=== PATIENT | male | born 1975 | race Caucasian/White ===

== ENCOUNTER 2018-04-11 09:50 | Emergency (ER) | payer BC ==
[2018-04-11 10:01] VITALS: BP 127/85
--- NOTE | 2018-04-11 10:03 | UC ---
Skin Complaint HPI - HPI Summary HPI Summary: 42 yo male presents with tick bite to left upper back. He first noticed this last night and was able to remove the tick - says it was fairly big tick but did not look engorged. Said that [place] yesterday and thinks thats when he got it. Denies fever/chills - History of Current Complaint Chief Complaint: UCSkin Time Seen by Provider: 04/11/18 09:55 Stated Complaint: TICK BITE Hx Obtained From: Patient Current Severity: None Pain Intensity: 0 - Allergy/Home Medications Allergies/Adverse Reactions: Allergies Allergy/AdvReac Type Severity Reaction Status Date / Time Hayfever Allergy Congestion Uncoded 04/11/18 10:01 Review of Systems Constitutional: Negative Skin: Other - Tick bite left upper back Respiratory: Negative Cardiovascular: Negative Neurovascular: Negative Neurological: Negative Psychological: Negative All Other Systems Reviewed And Are Negative: Yes PMH/Surg Hx/FS Hx/Imm Hx - Additional Past Medical History Additional PMH: None Previously Healthy: Yes - Surgical History Surgical History: Yes Surgery Procedure, Year, and Place: VASECTOMY - Family History Known Family History: Positive: Hypertension - Social History Alcohol Use: Occasionally Substance Use Type: None Smoking Status (MU): Never Smoked Tobacco Have You Smoked in the Last Year: No - Immunization History Most Recent Tetanus Shot: not sure Physical Exam - Summary Physical Exam Summary: GENERAL: NAD. WDWN. No pain distress. SKIN: Left upper back: 3mm area of mild erythema with 1mm of central skin loss. No remaining tick pieces appreciated. No streaking, bleeding, or drainage. NECK: Supple. Nontender. No lymphadenopathy. CHEST: No accessory muscle use. Breathing comfortably and in no distress. CV: RRR. Without m/r/g. NEURO: Alert. CN II-XII grossly intact. PSYCH: Age appropriate behavior. Triage Information Reviewed: Yes Vital Signs: Initial Vital Signs Temp 98 F 04/11/18 09:58 Pulse 83 04/11/18 09:58 Resp 15 04/11/18 09:58 BP 127/85 04/11/18 09:58 Pulse Ox 98 04/11/18 09:58 Course/Dx - Course Course Of Treatment: Tick bite left upper back. Less than 24 hours attached. No treatment needed. - Diagnoses Provider Diagnoses: Tick bite Discharge - Sign-Out/Discharge Documenting (check all that apply): Discharge/Admit/Transfer - Discharge Plan Condition: Stable Disposition: HOME Patient Education Materials: Lyme Disease (ED), Tick Bite (ED) Referrals: Ton VILLAR,Francisco Somers [Primary Care Provider] - Additional Instructions: TICK BITE: You have been bitten by a tick. Once the tick is removed, these "bites" usually cause no problems. Tick fever, tick paralysis, Grayridge Spotted fever, and Lyme disease are uncommon -- but you should mention this tick bite to your doctor if you develop unusual symptoms in the next several weeks. If you develop any of the following, please see your physician promptly: (1) Fever, chills, or generalized malaise associated with a headache. (2) A red round area at the site of the bite (or elsewhere) (3) Joint pain, joint swelling or generalized weakness. (4) Redness, swelling, or drainage at the site of the bite. - Billing Disposition and Condition Condition: STABLE Disposition: HOME
== END 2018-04-11 10:18 | disposition home or self-care (01) ==
LOC: UCEAST 09:50
DX: S20.462A Insect bite (nonvenomous) of left back wall of thorax, initial encounter (principal); W57.XXXA Bitten or stung by nonvenomous insect and other nonvenomous arthropods, initial encounter; Y93.01 Activity, walking, marching and hiking; Y92.821 Forest as the place of occurrence of the external cause
CPT/HCPCS: 99211; G0463

== ENCOUNTER 2018-06-13 05:13 | Emergency (ER) | payer BC ==
[2018-06-13] MEDS ORDERED: Nitroglycerin TAB 0.4 MG* 0.4 MG TAB SL PRN (05:40)
[2018-06-13] MEDS ORDERED: Morphine VIAL* 4 MG/ML VIAL (1 ml vial) IV PRN (05:40)
--- NOTE | 2018-06-13 05:42 | ED ---
HPI Chest Pain - HPI Summary HPI Summary: Pt is a 42 y/o M c/o intermittent CP located in the mid sternum radiating to the L-side, L-shoulder and L-back. CP is described as dull and tight. Shoulder pain is described as, "stabbing in shoulder". Onset ~0330 waking him from deep sleep. Assoc. Sx: . Denies: SOB, dizziness, ADAMS, vision changes, N/V, diarrhea. Alleviating factors: deep breaths. Pt notes that he lifted a heavy anvil at work 1 week ago and started having CP the day after. PMHx: sleep apnea. FHx: A- fib. - History of Current Complaint Chief Complaint: EDChestPainROMI Hx Obtained From: Patient Onset/Duration: Started Weeks Ago, Resolved Timing: Intermittent, Lasting Minutes Current Severity: Mild Pain Intensity: 3 Pain Scale Used: 0-10 Numeric Chest Pain Location: Mid Sternal Chest Pain Radiates: Yes Chest Pain Radiates To:: Back - L-side, Flank - L-side, Shoulder - L-side Character: Dull/Aching, Sharp/Stabbing, Tightness Aggravating Factor(s): Nothing Alleviating Factor(s): Other: - deep breaths Associated Signs and Symptoms: Positive: Chest Pain, Back Pain. Negative: Headaches, Dizziness, Shortness of Breath, Lightheadedness, Nausea, Vomiting - Allergy/Home Medications Allergies/Adverse Reactions: Allergies Allergy/AdvReac Type Severity Reaction Status Date / Time Hayfever Allergy Congestion Uncoded 06/13/18 05:26 Home Medications: Home Medications Naproxen [Naproxen 500 mg tab] 500 mg PO BID 06/13/18 [History Confirmed ] PMH/Surg Hx/FS Hx/Imm Hx Endocrine/Hematology History: Denies: Hx Diabetes, Hx Thyroid Disease Cardiovascular History: Denies: Hx Hypertension Respiratory History: Denies: Hx Asthma, Hx Chronic Obstructive Pulmonary Disease (COPD) GI History: Denies: Hx Ulcer - Surgical History Surgery Procedure, Year, and Place: VASECTOMY Infectious Disease History: No Infectious Disease History: Denies: Hx Clostridium Difficile, Hx Hepatitis, Hx Human Immunodeficiency Virus (HIV), Hx of Known/Suspected MRSA, Hx Shingles, Hx Tuberculosis, Hx Known/ Suspected VRE, Hx Known/Suspected VRSA, History Other Infectious Disease, Traveled Outside the [place] in Last 30 Days - Family History Known Family History: Positive: Cardiac Disease - A-fib, Hypertension - Social History Occupation: Employed Full-time Lives: With Family Alcohol Use: Rare Substance Use Type: Reports: None Smoking Status (MU): Never Smoked Tobacco Have You Smoked in the Last Year: No Review of Systems Positive: Chest Pain - central Negative: Shortness Of Breath Negative: Vomiting, Diarrhea, Nausea Positive: flank pain - L-sided Positive: Other - L-sided shoulder pain, back pain Negative: Headache All Other Systems Reviewed And Are Negative: Yes Physical Exam - Summary Physical Exam Summary: Appearance: Well-appearing, Well-nourished, lying in bed comfortably Skin: Warm, dry, no obvious rash Eyes: sclera anicteric, no conjunctival pallor ENT: mucous membranes moist, pharynx appears normal Neck: Supple, nontender Respiratory: Clear to auscultation, no signs of respiratory distress Cardiovascular: Normal S1, S2. No murmurs. Normal distal pulses in tibial and radial bilaterally. Abdomen: Soft, nontender, normal active bowel sounds present Musculoskeletal: Normal, Strength/ROM Intact Neurological: A&Ox3, awake and alert, mentation is normal, speech is fluent and appropriate Psychiatric: affect is normal, does not appear anxious or depressed Triage Information Reviewed: Yes Vital Signs On Initial Exam: Initial Vitals Pulse BP Pulse Ox 68 126/91 99 06/13/18 05:20 06/13/18 05:20 06/13/18 05:20 Vital Signs Reviewed: Yes Diagnostics - Vital Signs Vital Signs Temp Pulse Resp BP Pulse Ox 06/13/18 05:29 69 13 98 06/13/18 05:21 97.5 F 80 18 126/91 99 06/13/18 05:20 68 126/91 99 - Laboratory Result Diagrams: 06/13/18 05:57 06/13/18 05:57 Lab Statement: Any lab studies that have been ordered have been reviewed, and results considered in the medical decision making process. - Radiology CXR Xray Interpretation: No Acute Changes Radiology Interpretation Completed By: ED Physician - report has been reviewed by provider and is pending official review. - EKG 0540 Cardiac Rate: NL - 66 bpm EKG Rhythm: Sinus Rhythm ST Segment: Normal Ectopy: None - Additional Comments Diagnostic Additional Comments: NSR at 66 BPM, P waves, QRS complex, and T waves are within normal limits, T waves and intervals are normal, no ischemic changes. This is a normal EKG Re-Evaluation - Re-Evaluation First Eval Re-Evaluation Time: 06:59 Change: Improved - pain has resolved Chest Pain Course/Dx - Diagnoses Provider Diagnoses: Atypical chest pain, Chest wall pain Discharge - Sign-Out/Discharge Documenting (check all that apply): Sign-Out Patient Signing out patient TO: Tristan Kim Receiving patient FROM: Hung Lo - Discharge Plan Condition: Improved Disposition: HOME Patient Education Materials: Chest Pain (ED), Chest Wall Pain (ED) Referrals: Ton VILLAR,Francisco Somers [Primary Care Provider] - Additional Instructions: Call today to schedule appointment for follow-up with your doctor. Ibuprofen as needed. You may need an outpatient stress test. He may need other testing as well. Return with more severe symptoms, shortness of breath, worse or other concerns as discussed. - Billing Disposition and Condition Condition: IMPROVED Disposition: Home
[2018-06-13] MEDS ORDERED: Nitroglycerin TAB 0.4 MG* 0.4 MG TAB ONE (05:46)
[2018-06-13] MEDS ORDERED: Morphine VIAL* 4 MG/ML VIAL (1 ml vial) IV ONE ×2 (05:46→05:48)
[2018-06-13 06:07] LABS: ABS Basophils 0 10^3/ul (0-0.2); ABS Eosinophils 0.1 10^3/ul (0-0.6); ABS Lymphocytes 2.1 10^3/ul (1.0-4.8); ABS Monocytes 0.4 10^3/ul (0-0.8); ABS Neutrophils 2.9 10^3/ul (1.5-7.7); ABS Nucleated RBC 0 10^3/ul; Eosinophil % 2.6 % (0-6); Hematocrit 46 % (42-52); Lymphocyte % 37.1 % (25-47); Mean Corpuscular HGB Conc 35 g/dl (31-36); Mean Corpuscular Hemoglobin 30 pg (27-31); Mean Corpuscular Volume 85 fL (80-94); Mean Platelet Volume 7.1 um3 (7.4-10.4); Nucleated Red Blood Cells % 0.1; Platelet Count 234 10^3/ul (150-450); Red Blood Count 5.37 10^6/ul (4.00-5.40); Red Cell Distribution Width 13 % (10.5-15); White Blood Count 5.6 10^3/ul (3.5-10.8)
[2018-06-13 06:24] LABS: EGFR Non-African American 88.4 (>60)
--- NOTE | 2018-06-13 07:11 | ED ---
Progress - Progress Note Progress Note: This is karlaibcindy Shelley documenting for attending Tristan Kim M.D. Second troponin level 0.00. Appearance: Well appearing, no pain distress Skin: warm, dry, reflects adequate perfusion Head/face: normal Eyes: EOMI, KENIA ENT: normal Neck: supple, non-tender Respiratory: CTA, breath sounds present Cardiovascular: RRR, pulses symmetrical Abdomen: non-tender, soft Bowel Sounds: present Musculoskeletal: normal, strength/ROM intact Neuro: normal, sensory motor intact, A&Ox3 Re-Evaluation - Re-Evaluation First Eval Re-Evaluation Time: 07:08 Change: Improved Comment: Pt has no pain now Course/Dx - Course Course Of Treatment: Second troponin level 0.00. Patient with 1 week of chest discomfort mostly in the pectoral region of his left chest. Improved with deep breathing. No exertional component. Not improve nitroglycerin. Improved here with morphine, Toradol. 2 troponins negative. Follow closely with primary care physician. Heart score 0. - Diagnoses Provider Diagnoses: Atypical chest pain, Chest wall pain Discharge - Sign-Out/Discharge Documenting (check all that apply): Patient Departure - Discharge, Receiving Sign-Out Receiving patient FROM: Hung Lo - Discharge Plan Condition: Improved Disposition: HOME Patient Education Materials: Chest Pain (ED), Chest Wall Pain (ED) Referrals: Ton VILLAR,Francisco Somers [Primary Care Provider] - Additional Instructions: Call today to schedule appointment for follow-up with your doctor. Ibuprofen as needed. You may need an outpatient stress test. He may need other testing as well. Return with more severe symptoms, shortness of breath, worse or other concerns as discussed. - Billing Disposition and Condition Condition: IMPROVED Disposition: Home
[2018-06-13] MEDS ORDERED: Ketorolac INJ* 30 MG/ML 1 ML VIAL IV PUSH ONE (07:13)
--- NOTE | 2018-06-13 07:48 | RAD ---
Indication: LEFT chest pain. Comparison: March 20, 2010 CT abdomen and November 02, 2005 chest radiograph. Technique: Upright AP 0550 hours Report: Clear lungs and pleural spaces. Negative for pneumothorax. The heart, pulmonary vasculature, and mediastinal contours are unremarkable. Unremarkable osseous structures and soft tissue contours. IMPRESSION: #. No evidence for acute intrathoracic disease. R0
[2018-06-13 12:39] VITALS: BP 120/83
== END 2018-06-13 12:20 | disposition home or self-care (01) ==
LOC: ED 05:13
DX: R07.89 Other chest pain (principal); Z82.49 Family history of ischemic heart disease and other diseases of the circulatory system
CPT/HCPCS: 36415; 71045; 80053; 83605; 84484; 85025; 93005; 96374; 96375; 99283; A9270-GY; J1885; J2270

== ENCOUNTER 2019-08-27 17:00 | Emergency (ER) | payer BC ==
[2019-08-27 17:11] VITALS: BP 127/84
[2019-08-27] MEDS ORDERED: Tetracaine 0.5% OPTH.SOL 4 ML* 1 DROP BTL RIGHT EYE ONE (17:44)
[2019-08-27] MEDS ORDERED: Fluorescein Sodium TOPICAL* 1 MG TEST STRIP OPHTHALMIC ONE (17:45)
[2019-08-27] MEDS ORDERED: Ciprofloxacin 0.3% OPTH.SOL* BTL RIGHT EYE ONE (18:08)
--- NOTE | 2019-08-27 18:20 | UC ---
Eye Complaint HPI - HPI Summary HPI Summary: PATIENT WAS WORKING AT HIS SHOP 3 DAYS AGO WHEN AN ALUMINUM SHAVING FLEW INTO HIS RIGHT EYE. HE WAS WEARING SAFETY GOGGLES. HAS FOREIGN BODY SENSATION AND IRRITATION TO THE RIGHT EYE WHICH HAS NOT IMPROVED. HAS SOME CLEAR DRAINAGE. NO VISUAL DISTURBANCES. - History of Current Complaint Chief Complaint: UCEye Stated Complaint: FB EYE Time Seen by Provider: 08/27/19 17:34 Hx Obtained From: Patient Onset/Duration: Sudden Onset, Lasting Days, Still Present Timing: Constant Severity Initially: Mild Severity Currently: Mild Pain Intensity: 2 Pain Scale Used: 0-10 Numeric Character: Sharp, Foreign Body Sensation Aggravating Factor(s): Blinking Alleviating Factor(s): Nothing Associated Signs And Symptoms: Positive: Drainage (Clear). Negative: Photophobia, Drainage (Purulent), Vision Impairment Bilateral - Allergies/Home Medications Allergies/Adverse Reactions: Allergies Allergy/AdvReac Type Severity Reaction Status Date / Time Hayfever Allergy Congestion Uncoded 08/27/19 17:11 Home Medications: Home Medications Back-Aid 2 tab PO BID 08/27/19 [History Confirmed 08/27/19] Meloxicam(NF) [Mobic(NF)] 7.5 mg PO BID 08/27/19 [History Confirmed 08/27/19] PMH/Surg Hx/FS Hx/Imm Hx Previously Healthy: Yes - Surgical History Surgical History: Yes Surgery Procedure, Year, and Place: VASECTOMY - Family History Known Family History: Positive: Cardiac Disease - A-fib, Hypertension - Social History Alcohol Use: Occasionally Substance Use Type: None Smoking Status (MU): Never Smoked Tobacco Have You Smoked in the Last Year: No - Immunization History Most Recent Tetanus Shot: not sure Review of Systems All Other Systems Reviewed And Are Negative: Yes Constitutional: Positive: Negative Eyes: Positive: Drainage, Eye Redness. Negative: Blurred Vision Respiratory: Positive: Negative Cardiovascular: Positive: Negative Gastrointestinal: Positive: Negative Musculoskeletal: Positive: Negative Neurological: Positive: Negative Physical Exam Triage Information Reviewed: Yes Appearance: Well-Appearing, No Pain Distress, Well-Nourished Vital Signs: Initial Vital Signs Temp 98.3 F 08/27/19 17:08 Pulse 75 08/27/19 17:08 Resp 16 08/27/19 17:08 BP 127/84 08/27/19 17:08 Pulse Ox 100 08/27/19 17:08 Vital Signs Reviewed: Yes Eyes: Positive: Conjunctiva Inflamed - RIGHT EYE, Discharge - CLEAR TEARING RIGHT EYE, Other: - PERRL, EOMI. FLUORESCEIN UPTAKE 12 O'CLOCK POSITION RIGHT CORNEA IN A STREAK ENT: Positive: Hearing grossly normal Neck: Positive: Supple Respiratory: Positive: No respiratory distress, No accessory muscle use Cardiovascular: Positive: Pulses Normal Abdomen Description: Positive: Soft Musculoskeletal: Positive: No Edema Neurological: Positive: Alert Psychological: Positive: Age Appropriate Behavior Skin: Negative: Rashes Eye Complaint Course/Dx - Differential Dx/Diagnosis Provider Diagnosis: Right corneal abrasion Discharge ED - Sign-Out/Discharge Documenting (check all that apply): Patient Departure All imaging exams completed and their final reports reviewed: No Studies - Discharge Plan Condition: Stable Disposition: HOME Prescriptions: Ketorolac 0.5% OPHTH (NF) 1 drop RIGHT EYE QID PRN #1 [id number] PRN Reason: Pain Patient Education Materials: Corneal Abrasion (ED) Referrals: Ton VILLAR,Francisco Somers [Primary Care Provider] - If Needed Additional Instructions: YOU HAVE A SCRATCH ON YOUR RIGHT CORNEA. NO FOREIGN BODY IDENTIFIED. USE THE ANTIBIOTIC EVERY 4 HOURS WHILE AWAKE FOR A WEEK. FOLLOW-UP WITH AN EYE DOCTOR YOU ARE NOT IMPROVING OVER THE NEXT FEW DAYS. - Billing Disposition and Condition Condition: STABLE Disposition: Home
== END 2019-08-27 18:20 | disposition home or self-care (01) ==
LOC: UCEAST 17:00
DX: S05.01XA Injury of conjunctiva and corneal abrasion without foreign body, right eye, initial encounter (principal); Z91.09 Other allergy status, other than to drugs and biological substances; X58.XXXA Exposure to other specified factors, initial encounter; Y92.9 Unspecified place or not applicable
CPT/HCPCS: 99212; A9270-GY; G0463